=== PATIENT | female | born 1990 | race African-American/Black ===

== ENCOUNTER 2017-10-04 21:29 | Emergency (ER) | payer SELFPAY ==
[~2017-10-04] VITALS: Ht 167.6 cm; Wt 60.0 kg
[2017-10-04] MEDS ORDERED: CYCLOBENZAPRINE 10MG TABLET PO ONE (23:00)
[2017-10-04] MEDS ORDERED: KETOROLAC 60MG/2ML VIAL IM ONE (23:00)
[2017-10-04 23:06] VITALS: BP 122/73
== END 2017-10-04 23:53 | disposition home or self-care (01) ==
LOC: ER 21:45
DX: S29.012A Strain of muscle and tendon of back wall of thorax, initial encounter (principal); S80.02XA Contusion of left knee, initial encounter; S80.01XA Contusion of right knee, initial encounter; J45.909 Unspecified asthma, uncomplicated; Z91.010 Allergy to peanuts; Z91.013 Allergy to seafood; V49.88XA Car occupant (driver) (passenger) injured in other specified transport accidents, initial encounter; Y93.89 Activity, other specified; Y92.410 Unspecified street and highway as the place of occurrence of the external cause; Y99.8 Other external cause status
CPT/HCPCS: 81025; 96372; 99284; J1885